=== PATIENT | female | born 1985 | race Caucasian/White ===

== ENCOUNTER → 2018-08-12 | Outpatient (CLI) | payer OTHER ==
[2018-08-13 16:07] LABS: HPV 16 Negative (Negative); HPV 18 Negative (Negative); HPV OTHER HR TYPES Negative (Negative)
== END | disposition home or self-care (01) ==
LOC: LAB SHORT 09:50 → LAB 09:50
PROVIDERS: Obstetrics & Gynecology
DX: Z01.419 Encounter for gynecological examination (general) (routine) without abnormal findings (principal)
CPT/HCPCS: 87624; G0123

== ENCOUNTER → 2022-04-22 | Outpatient (CLI) | payer OTHER ==
[~2022-04-22] MED LIST: CEFP200 PO; Norco 5-325 Ta1 EACH PO; ONDA4ODT MM
== END ==
LOC: LAB SHORT 08:16 → LAB 08:16
DX: R31.9 Hematuria, unspecified (principal)
CPT/HCPCS: 87077; 87086; 87186

== ENCOUNTER → 2024-01-06 | Outpatient (CLI) | payer OTHER | LOC: LAB SHORT 09:11 → LAB 09:11 | DX: N39.0 Urinary tract infection, site not specified (principal) | CPT/HCPCS: 87077; 87086; 87186 ==